=== PATIENT | female | born 2000 | race Two or more races ===

== ENCOUNTER 2019-05-31 10:31 | Emergency (ER) | payer OTHER ==
[~2019-05-31] VITALS: Ht 160 cm; Wt 73.0 kg
[2019-05-31] MEDS ORDERED: ONDANSETRON 2MG/ML, 2ML IVPush ONE (11:00)
[2019-05-31] MEDS ORDERED: MAALOX/HYOSCYAMINE/LIDOCAINE 45 ML BTL PO ONE (11:00)
[2019-05-31] MEDS ORDERED: FAMOTIDINE 20 MG/2 ML IV ONE (11:00)
[2019-05-31] MEDS ORDERED: SODIUM CHLORIDE FLUSH 10ML SYR IVF ONE (11:00)
[2019-05-31] MEDS ORDERED: ONDANSETRON 2MG/ML, 2ML ONE (11:08)
[2019-05-31] MEDS ORDERED: FAMOTIDINE 20 MG/2 ML ONE (11:08)
[2019-05-31] MEDS ORDERED: MAALOX/HYOSCYAMINE/LIDOCAINE 45 ML BTL ONE (11:08)
[2019-05-31 11:23] LABS: BASOPHILS # (AUTO) 0.03 x10^3/uL (0-0.1); BASOPHILS % (AUTO) 1 % (0-1); EOSINOPHILS # (AUTO) 0.05 x10^3/uL (0-0.4); EOSINOPHILS % (AUTO) 1 % (1-7); LYMPHOCYTES # (AUTO) 1.91 x10^3/uL (1-3.4); LYMPHOCYTES % (AUTO) 35 % (22-44); MD NO; MEAN CORPUSCULAR HEMOGLOBIN 30.8 pg (27.0-34.8); MEAN CORPUSCULAR HGB CONC 33.6 g/dL (32.4-35.8); MEAN CORPUSCULAR VOLUME 91.7 fL (80-100); MEAN PLATELET VOLUME 7.7 fL (7.4-10.4); MONOCYTES # (AUTO) 0.51 x10^3/uL (0.2-0.8); MONOCYTES % (AUTO) 9 % (2-9); NEUTROPHILS # (AUTO) 2.97 x10^3/uL (1.8-6.8); NEUTROPHILS % (AUTO) 54 % (42-75); PLATELET COUNT 310 x10^3/uL (130-400); RED CELL DISTRIBUTION WIDTH 12.7 % (9.6-15.2)
[2019-05-31 11:28] LABS: ALANINE AMINOTRANSFERASE 59 U/L (12-78); ALBUMIN 3.9 g/dL (3.4-5.0); ANION GAP 8 mmol/L (5-15); CALCIUM 8.6 mg/dL (8.5-10.1); CHLORIDE 109 mmol/L (98-107); CREATININE 0.87 mg/dL (0.55-1.02)
[2019-05-31 11:33] LABS: ALKALINE PHOSPHATASE 101 U/L (45-117); TOTAL PROTEIN 9.1 g/dL (6.4-8.2)
[2019-05-31 11:34] LABS: BILIRUBIN,TOTAL 0.5 mg/dL (0.2-1.0)
--- NOTE | 2019-05-31 11:36 | NUR ---
PT DENIES ABILITY TO PRODUCE UA AT THIS TIME
[2019-05-31] MEDS ORDERED: POTASSIUM CHLORIDE 20 MEQ TAB.ER.PRT ONE (11:52)
[2019-05-31] MEDS ORDERED: POTASSIUM CHLORIDE 20 MEQ TAB.ER.PRT PO ONE (12:00)
[2019-05-31 12:13] VITALS: BP 128/83
--- NOTE | 2019-05-31 12:13 | NUR ---
TASK RN: PT RESTING ON GURNEY. NADN. WILLARD.
[2019-05-31 12:25] LABS: MICROSCOPIC AUTO
[2019-05-31 12:29] LABS: CULTURE INDICATED? YES
== END 2019-05-31 13:51 | disposition home or self-care (01) ==
LOC: ED 11:42
DX: K29.00 Acute gastritis without bleeding (principal); N30.00 Acute cystitis without hematuria; Z90.49 Acquired absence of other specified parts of digestive tract
CPT/HCPCS: 36415; 80053; 81001; 83690; 84703; 85025; 87086; 87147; 96374; 96375; 99283; J2405; J3490